=== PATIENT | male | born 1955 | race Caucasian/White ===

== ENCOUNTER 2020-09-21 09:58 | Inpatient (IN) | payer OTHER ==
[2020-09-21] MEDS ORDERED: Ondansetron PF 4 MG/2 ML Vial ONE ×3 (10:59→18:54)
[2020-09-21] MEDS ORDERED: Morphine 4 MG/ML VIAL ONE (10:59)
[2020-09-21] MEDS ORDERED: Morphine 2 MG/ML VIAL ONE (11:00)
[2020-09-21] MEDS ORDERED: Ketorolac Tromethamine 30 MG/ML VIAL ONE (11:00)
[2020-09-21 12:44] LABS: Bilirubin 1+ (Negative); Blood, Urine 25 (Negative); Clarity Clear (Clear); Glucose, Urine (Dipstick) Normal (Negative); Ketone, Urine 150 mg/dL (Negative); Leukocyte 25 (Negative); Nitrite Negative (Negative); Protein, Urine (Dipstick) 30 mg/dl (Neg-Trace)
[2020-09-21 13:01] LABS: Bacteria/HPF 2+ HPF (None Seen); RBC/HPF 0-3 HPF (0-3); Squamous Epithelial 0-3 HPF (0-3); WBC/HPF 0-3 HPF (0-3)
[2020-09-21 13:02] LABS: Mucous/LPF 3+ LPF (<2+)
[2020-09-21 13:39] LABS: Hemoglobin 17.3 g/dL (13.5-17.5); Mean Corpuscular HGB CONC 33.1 g/dL (32.0-36.0); Mean Corpuscular Hemoglobin 30.6 pg (27.0-33.0); Mean Corpuscular Volume 92.6 fl (81.2-95.1); Mean Platelet Volume 10.7 fl (7.4-10.4); Platelet Count 306 10x3/uL (150-450); RBC Distribution Width 13.8 % (11.5-14.5); Red Blood Cell (RBC) Count 5.65 10x6/uL (4.32-5.72); White Blood Cell (WBC) Count 22.6 10x3/uL (3.5-10.5)
[2020-09-21 13:50] LABS: ALT (SGPT) 14 U/L (8-55); AST (SGOT) 17 U/L (5-34); Albumin 4.8 g/dL (3.4-4.8); Alkaline Phosphatase 91 U/L (40-110); Anion Gap 21 mmol/L (10-20); BUN (Urea Nitrogen) 17 mg/dL (8.4-25.7); Bilirubin, Total 3.1 mg/dL (0.2-1.2); Calc. Creatinine Clearance 0 mL/min (70-130); Calcium 10.2 mg/dL (7.8-10.44); Carbon Dioxide 22 mmol/L (23-31); Chloride 100 mmol/L (98-107); Globulin 3.7 g/dL (2.4-3.5); Glucose 123 mg/dL (80-115); Lipase 23 U/L (8-78); Magnesium 2.1 mg/dL (1.6-2.6); Potassium 4.2 mmol/L (3.5-5.1); Protein, Total 8.5 g/dL (5.8-8.1); Sodium 139 mmol/L (136-145)
[2020-09-21 13:59] LABS: Lymphocytes 1 % (21-51); Monocytes 11 % (0-10); Reactive Lymphocytes 1 % (0-10)
[2020-09-21 14:00] LABS: Large Platelets SLIGHT; MDiff Complete? YES; Neutrophil 86 % (42-75)
[2020-09-21 14:01] LABS: Platelet Morphology Comment Appears Adequate; RBC Morphology Normal
[2020-09-21] MEDS ORDERED: Lidocaine 1% PF 5 ML VIAL ONE (18:53)
[2020-09-21] MEDS ORDERED: Rocuronium Bromide 10 MG/ML (10ML VIAL) ONE (18:53)
[2020-09-21] MEDS ORDERED: PHENYLEPHRINE-NS 100 MCG/ML 10 ML SYRINGE ONE (18:54)
[2020-09-21] MEDS ORDERED: Dexamethasone 4 mg/ml Vial ONE (18:54)
[2020-09-21] MEDS ORDERED: Succinylcholine 200 MG/10 ml SYRINGE FS ONE (18:54)
[2020-09-21] MEDS ORDERED: Fentanyl 250 MCG/5 ML VIAL ONE (18:55)
[2020-09-21] MEDS ORDERED: PROPOFOL 20 ML ONE ×2 (18:55→20:56)
[2020-09-21 19:23] LABS: SARS-CoV-2 NAA Rapid Test Not Detected (NotDetected)
[2020-09-21] MEDS ORDERED: CEFAZOLIN 1 GM VIAL ONE (19:38)
[2020-09-21] MEDS ORDERED: Glycopyrrolate 0.2 MG/ML 5 ML SYRINGE ONE (20:31)
[2020-09-21] MEDS ORDERED: Bupivacaine 0.25% HCL 30 ML VIAL ONE (20:35)
[2020-09-21] MEDS ORDERED: EPINEPHrine 1 MG/ML AMP ONE (20:35)
[2020-09-21] MEDS ORDERED: Promethazine HCl 25 MG/ML VIAL IM PRN (21:28)
[2020-09-21] MEDS ORDERED: Dextrose 50% Abboject 50 ML SYRINGE SLOW IVP PRN (21:28)
[2020-09-21] MEDS ORDERED: Calcium Carbonate 500 MG ChewTAB PO PRN (21:28)
[2020-09-21] MEDS ORDERED: hydrALAZINE 20 MG/ML VIAL SLOW IVP PRN (21:28)
[2020-09-21] MEDS ORDERED: Dextrose 5% in Water 1,000 ML IV PRN (21:28)
[2020-09-21] MEDS ORDERED: Mag-Al 1200 mg/1200 mg/30 ML UDCUP PO PRN (21:28)
[2020-09-21 22:54] VITALS: BMI 34.0
[2020-09-21] MEDS: Ondansetron PF 4 MG/2 ML Vial IVP PRN (23:33)
[2020-09-21] MEDS: Morphine 2 MG/ML VIAL SLOW IVP PRN (23:37)
[2020-09-21] MEDS: D5 1/2 NS w/20 mEq KCL 1,000 ML IV SCH (23:45)
[2020-09-22] MEDS: Morphine 2 MG/ML VIAL SLOW IVP PRN (03:14)
[2020-09-22 06:07] LABS: ALT (SGPT) 11 U/L (8-55); AST (SGOT) 11 U/L (5-34); Albumin 3.7 g/dL (3.4-4.8); Alkaline Phosphatase 66 U/L (40-110); Anion Gap 14 mmol/L (10-20); BUN (Urea Nitrogen) 17 mg/dL (8.4-25.7); Calc. Creatinine Clearance 129 mL/min (70-130); Calcium 8.7 mg/dL (7.8-10.44); Carbon Dioxide 19 mmol/L (23-31); Chloride 107 mmol/L (98-107); Globulin 3.2 g/dL (2.4-3.5); Glucose 157 mg/dL (80-115); Potassium 3.9 mmol/L (3.5-5.1); Protein, Total 6.9 g/dL (5.8-8.1); Sodium 136 mmol/L (136-145)
[2020-09-22 06:09] LABS: #Neutrophils 15.7 10x3/uL (1.5-8.4); %Basophils 0.2 % (0.0-2.0); %Monocytes 10.7 % (0.0-10.0); %Neutrophils 83.2 % (40.0-75.0); Hemoglobin 13.9 g/dL (13.5-17.5); Mean Corpuscular HGB CONC 33.2 g/dL (32.0-36.0); Mean Corpuscular Hemoglobin 30.8 pg (27.0-33.0); Mean Corpuscular Volume 92.9 fl (81.2-95.1); Mean Platelet Volume 10.6 fl (7.4-10.4); Platelet Count 230 10x3/uL (150-450); RBC Distribution Width 14.2 % (11.5-14.5); Red Blood Cell (RBC) Count 4.51 10x6/uL (4.32-5.72); White Blood Cell (WBC) Count 18.8 10x3/uL (3.5-10.5)
[2020-09-22] MEDS ORDERED: Albuterol Sulfate 2.5 mg/3 ml Neb NEB PRN (08:38)
[2020-09-22] MEDS: Levothyroxine Sodium 25 MCG TAB PO SCH (08:59)
[2020-09-22] MEDS: Furosemide 20 MG TAB PO SCH ×2 (08:59→20:49)
[2020-09-22] MEDS: Carvedilol 12.5 MG TAB PO SCH ×2 (08:59→20:48)
[2020-09-22] MEDS: Famotidine/PF 20 mg/2ml Vial SLOW IVP SCH ×2 (08:59→20:48)
[2020-09-22] MEDS: Enoxaparin Sodium 40 MG/0.4 ML SYRINGE SC SCH (09:06)
[2020-09-22] MEDS: HYDROcodone/Acetaminophen 10/325 mg Tablet PO PRN ×2 (10:44→20:49)
[2020-09-22] MEDS: D5 1/2 NS w/20 mEq KCL 1,000 ML IV SCH (13:05)
[2020-09-22] MEDS: Ipratropium Bromide 2.5 ml Neb NEB SCH ×2 (14:10→19:45)
[2020-09-22] MEDS: Senokot 8.6 MG TAB PO SCH (20:49)
[2020-09-23] MEDS: Ondansetron PF 4 MG/2 ML Vial IVP PRN ×2 (01:18→17:44)
[2020-09-23] MEDS: Ipratropium Bromide 2.5 ml Neb NEB SCH ×4 (01:32→19:54)
[2020-09-23] MEDS: HYDROcodone/Acetaminophen 10/325 mg Tablet PO PRN (05:08)
[2020-09-23] MEDS: D5 1/2 NS w/20 mEq KCL 1,000 ML IV SCH ×2 (05:11→23:02)
[2020-09-23 09:00] LABS: #Eosinphils 0.1 10x3/uL (0.0-0.5); #Monocytes 2.1 10x3/uL (0.0-1.1); #Neutrophils 10.7 10x3/uL (1.5-8.4); %Basophils 0.3 % (0.0-2.0); %Eosinophils 0.4 % (0.0-6.0); %Lymphocytes 8.8 % (18.0-47.0); %Monocytes 14.7 % (0.0-10.0); %Neutrophils 74.8 % (40.0-75.0); Mean Corpuscular HGB CONC 33.3 g/dL (32.0-36.0); Mean Corpuscular Hemoglobin 31.4 pg (27.0-33.0); Mean Corpuscular Volume 94.2 fl (81.2-95.1); Mean Platelet Volume 10.1 fl (7.4-10.4); Platelet Count 184 10x3/uL (150-450); RBC Distribution Width 14.2 % (11.5-14.5); Red Blood Cell (RBC) Count 3.82 10x6/uL (4.32-5.72); White Blood Cell (WBC) Count 14.3 10x3/uL (3.5-10.5)
[2020-09-23] MEDS: Carvedilol 12.5 MG TAB PO SCH ×2 (09:28→21:30)
[2020-09-23] MEDS: Enoxaparin Sodium 40 MG/0.4 ML SYRINGE SC SCH (09:29)
[2020-09-23] MEDS: Furosemide 20 MG TAB PO SCH ×2 (09:29→21:30)
[2020-09-23] MEDS: Famotidine/PF 20 mg/2ml Vial SLOW IVP SCH ×2 (09:29→21:30)
[2020-09-23] MEDS: Levothyroxine Sodium 25 MCG TAB PO SCH (09:29)
[2020-09-23] MEDS: Senokot 8.6 MG TAB PO SCH (21:29)
[2020-09-23] MEDS: Morphine 2 MG/ML VIAL SLOW IVP PRN (21:32)
[2020-09-23] MEDS: D5 1/2 NS w/20 mEq KCL 1,000 ML ONE (22:53)
[2020-09-24] MEDS: D5 1/2 NS w/20 mEq KCL 1,000 ML ONE (00:03)
[2020-09-24] MEDS: Ipratropium Bromide 2.5 ml Neb NEB SCH ×5 (02:28→20:11)
[2020-09-24] MEDS: HYDROcodone/Acetaminophen 10/325 mg Tablet PO PRN ×2 (04:01→18:48)
[2020-09-24 05:53] LABS: #Eosinphils 0.1 10x3/uL (0.0-0.5); #Monocytes 1.7 10x3/uL (0.0-1.1); #Neutrophils 8.9 10x3/uL (1.5-8.4); %Basophils 0.3 % (0.0-2.0); %Eosinophils 0.5 % (0.0-6.0); %Monocytes 14.2 % (0.0-10.0); %Neutrophils 76.5 % (40.0-75.0); Hemoglobin 11.7 g/dL (13.5-17.5); Mean Corpuscular HGB CONC 33.2 g/dL (32.0-36.0); Mean Corpuscular Hemoglobin 31.2 pg (27.0-33.0); Mean Corpuscular Volume 93.9 fl (81.2-95.1); Mean Platelet Volume 10.2 fl (7.4-10.4); Platelet Count 195 10x3/uL (150-450); RBC Distribution Width 14.1 % (11.5-14.5); Red Blood Cell (RBC) Count 3.75 10x6/uL (4.32-5.72); White Blood Cell (WBC) Count 11.7 10x3/uL (3.5-10.5)
[2020-09-24] MEDS: Levothyroxine Sodium 25 MCG TAB PO SCH (09:52)
[2020-09-24] MEDS: Carvedilol 12.5 MG TAB PO SCH ×2 (09:52→22:14)
[2020-09-24] MEDS: Furosemide 20 MG TAB PO SCH ×2 (09:53→22:14)
[2020-09-24] MEDS: Enoxaparin Sodium 40 MG/0.4 ML SYRINGE SC SCH (09:53)
[2020-09-24] MEDS: Famotidine/PF 20 mg/2ml Vial SLOW IVP SCH ×2 (09:53→22:14)
[2020-09-24] MEDS: Polyethylene Glycol 3350 17 GM Packet PO SCH (09:53)
[2020-09-24] MEDS: Ondansetron PF 4 MG/2 ML Vial IVP PRN (16:21)
[2020-09-24] MEDS: Senokot 8.6 MG TAB PO SCH (22:14)
[2020-09-24] MEDS: Morphine 2 MG/ML VIAL SLOW IVP PRN (22:26)
[2020-09-24] MEDS: D5 1/2 NS w/20 mEq KCL 1,000 ML IV SCH (22:27)
[2020-09-25] MEDS: Ipratropium Bromide 2.5 ml Neb NEB SCH (01:19)
[2020-09-25] MEDS: HYDROcodone/Acetaminophen 10/325 mg Tablet PO PRN ×2 (03:30→08:48)
[2020-09-25 04:07] LABS: #Eosinphils 0.2 10x3/uL (0.0-0.5); #Monocytes 1.9 10x3/uL (0.0-1.1); #Neutrophils 7.3 10x3/uL (1.5-8.4); %Basophils 0.4 % (0.0-2.0); %Lymphocytes 11.8 % (18.0-47.0); %Monocytes 17.4 % (0.0-10.0); %Neutrophils 67.6 % (40.0-75.0); Hemoglobin 11.2 g/dL (13.5-17.5); Mean Corpuscular HGB CONC 33.3 g/dL (32.0-36.0); Mean Corpuscular Hemoglobin 31.1 pg (27.0-33.0); Mean Corpuscular Volume 93.3 fl (81.2-95.1); Mean Platelet Volume 10.1 fl (7.4-10.4); Platelet Count 198 10x3/uL (150-450); RBC Distribution Width 13.8 % (11.5-14.5); White Blood Cell (WBC) Count 10.7 10x3/uL (3.5-10.5)
[2020-09-25 04:19] LABS: Anion Gap 14 mmol/L (10-20); BUN (Urea Nitrogen) 11 mg/dL (8.4-25.7); Calc. Creatinine Clearance 135 mL/min (70-130); Calcium 8.7 mg/dL (7.8-10.44); Carbon Dioxide 28 mmol/L (23-31); Chloride 100 mmol/L (98-107); Glucose 136 mg/dL (80-115); Potassium 3.8 mmol/L (3.5-5.1); Sodium 138 mmol/L (136-145)
[2020-09-25] MEDS: D5 1/2 NS w/20 mEq KCL 1,000 ML IV SCH (06:46)
[2020-09-25 07:25] VITALS: BP 118/66; TEMP 99.1
[2020-09-25] MEDS: Enoxaparin Sodium 40 MG/0.4 ML SYRINGE SC SCH (08:48)
[2020-09-25] MEDS: Famotidine/PF 20 mg/2ml Vial SLOW IVP SCH (08:48)
[2020-09-25] MEDS: Furosemide 20 MG TAB PO SCH (08:48)
[2020-09-25] MEDS: Carvedilol 12.5 MG TAB PO SCH (08:48)
[2020-09-25] MEDS: Levothyroxine Sodium 25 MCG TAB PO SCH (08:48)
[2020-09-25] MEDS: Polyethylene Glycol 3350 17 GM Packet PO SCH (08:48)
== END 2020-09-25 09:57 | DRG 329 ==
LOC: CSHERS 09:58 → EEVIPCON 09:58 → CSHTELE 22:31
PROVIDERS: ADMIT Student in an Organized Health Care Education/Training Program; ATTEND Internal Medicine
PROC: 0DBU0ZZ Excision of Omentum, Open Approach (ICD-10-PCS; principal; 2020-09-21)
PROC: 0DB80ZZ Excision of Small Intestine, Open Approach (ICD-10-PCS; 2020-09-21)
PROC: 0WQF0ZZ Repair Abdominal Wall, Open Approach (ICD-10-PCS; 2020-09-21)
DX: K43.1 Incisional hernia with gangrene (principal); T81.31XA Disruption of external operation (surgical) wound, not elsewhere classified, initial encounter; K55.029 Acute infarction of small intestine, extent unspecified; Z20.822 Contact with and (suspected) exposure to COVID-19; I25.10 Atherosclerotic heart disease of native coronary artery without angina pectoris; J44.9 Chronic obstructive pulmonary disease, unspecified; E03.9 Hypothyroidism, unspecified; Z95.5 Presence of coronary angioplasty implant and graft
CPT/HCPCS: 36415; 36416; 74177; 80048; 80053; 81003; 81015; 83690; 83735; 85025; 88307; 93005; 94640; 94760; 96374; 96375; J0171; J0690; J1100; J1650; J1885; J2270; J2405; J2704; J3010; J3480; S0020; S0028; U0002

== ENCOUNTER 2023-01-02 11:02 | Emergency (ER) | payer OTHER ==
[2023-01-02 11:54] LABS: #Basophils 0.1 10x3/uL (0.0-0.2); #Eosinphils 0.2 10x3/uL (0.0-0.5); #Monocytes 1.3 10x3/uL (0.0-1.1); #Neutrophils 7.5 10x3/uL (1.5-8.4); %Basophils 0.8 % (0.0-2.0); %Eosinophils 1.3 % (0.0-6.0); %Lymphocytes 20.5 % (18.0-47.0); %Monocytes 11.5 % (0.0-10.0); %Neutrophils 64.7 % (40.0-75.0); Hematocrit 42.4 % (38.8-50.0); Hemoglobin 14.2 g/dL (13.5-17.5); Mean Corpuscular HGB CONC 33.5 g/dL (32.0-36.0); Mean Corpuscular Hemoglobin 30.4 pg (27.0-33.0); Mean Corpuscular Volume 90.8 fl (81.2-95.1); Mean Platelet Volume 10.1 fl (7.4-10.4); Platelet Count 238 10x3/uL (150-450); Red Blood Cell (RBC) Count 4.67 10x6/uL (4.32-5.72); White Blood Cell (WBC) Count 11.6 10x3/uL (3.5-10.5)
[2023-01-02 12:23] LABS: ALT (SGPT) 13 U/L (8-55); AST (SGOT) 14 U/L (5-34); Albumin 4.2 g/dL (3.4-4.8); Alkaline Phosphatase 76 U/L (40-110); Anion Gap 16 mmol/L (10-20); BUN (Urea Nitrogen) 17 mg/dL (8.4-25.7); Bilirubin, Total 1.2 mg/dL (0.2-1.2); Calc. Creatinine Clearance 0 mL/min (70-130); Calcium 9.6 mg/dL (7.8-10.44); Carbon Dioxide 27 mmol/L (23-31); Chloride 102 mmol/L (98-107); Estimated GFR 80; Globulin 2.8 g/dL (2.4-3.5); Glucose 112 mg/dL (80-115); Lipase 39 U/L (8-78); Potassium 4.5 mmol/L (3.5-5.1); Sodium 140 mmol/L (136-145)
[2023-01-02 12:32] LABS: Troponin I Less than 0.010 ng/mL (< 0.028)
[2023-01-02 15:33] LABS: Troponin I Less than 0.010 ng/mL (< 0.028)
== END 2023-01-02 16:11 ==
LOC: CSHERS 11:02
DX: R07.89 Other chest pain (principal); M25.511 Pain in right shoulder; I10 Essential (primary) hypertension; J44.9 Chronic obstructive pulmonary disease, unspecified; E03.9 Hypothyroidism, unspecified; Z79.899 Other long term (current) drug therapy
CPT/HCPCS: 36415; 36416; 71045; 80053; 83690; 84484; 85025; 93005